=== PATIENT | male | born 1935 | race Two or more races ===

== ENCOUNTER 2020-06-10 08:38 | Outpatient (CLI) | payer OTHER | END 2020-06-10 08:45 | disposition home or self-care (01) | LOC: RX STUDY 08:38 | PROVIDERS: ATTEND Internal Medicine Gastroenterology | DX: K44.9 Diaphragmatic hernia without obstruction or gangrene (principal); R10.13 Epigastric pain ==

== ENCOUNTER 2020-07-22 07:40 | Outpatient (CLI) | payer OTHER | END 2020-07-22 08:03 | disposition home or self-care (01) | LOC: TOM 07:40 | PROVIDERS: ATTEND Internal Medicine Gastroenterology | DX: I82.891 Chronic embolism and thrombosis of other specified veins (principal) ==